=== PATIENT | male | born 1945 | race Caucasian/White ===

== ENCOUNTER → 2024-05-16 09:14 | Outpatient (REF) | payer MEDICARE, OTHER, SELFPAY | LOC: RAD 09:14 | PROVIDERS: ATTENDING PHYSICIAN Internal Medicine Cardiovascular Disease; FAMILY PHYSICIAN Family Medicine | DX: R09.89 Other specified symptoms and signs involving the circulatory and respiratory systems (principal); I65.23 Occlusion and stenosis of bilateral carotid arteries | CPT/HCPCS: 93880 ==